=== PATIENT | male | born 1990 | race Caucasian/White ===

== ENCOUNTER 2017-01-15 15:18 | Emergency (ER) | payer BC ==
[2017-01-15] MEDS ORDERED: Ibuprofen 800 MG Tab PO ONE (15:31)
--- NOTE | 2017-01-15 15:42 | EDM.PDOC ---
ED HPI GENERAL MEDICAL PROBLEM - General Chief Complaint: General Stated Complaint: HIGH FEVER Time Seen by Provider: 01/15/17 15:30 Source of Information: Reports: Patient History Limitations: Reports: No limitations - History of Present Illness INITIAL COMMENTS - FREE TEXT/NARRATIVE: History of present illness: [6-year-old male presenting with complaints of fever, sore throat, headache, and congestion] Review of systems: As per history of present illness and below otherwise all systems reviewed and negative. Past medical history: As per history of present illness and as reviewed below otherwise noncontributory. Surgical history: As per history of present illness and as reviewed below otherwise noncontributory. Social history: No reported history of drug or alcohol abuse. Family history: As per history of present illness and as reviewed below otherwise noncontributory. Physical exam: HEENT: Atraumatic, normocephalic, pupils reactive, negative for conjunctival pallor or scleral icterus, mucous membranes moist, throat clear, neck supple, nontender, trachea midline. Lungs: Clear to auscultation, breath sounds equal bilaterally, chest nontender. Heart: S1S2, regular, negative for clicks, rubs, or JVD. Abdomen: Soft, nondistended, nontender. Negative for masses or hepatosplenomegaly. Negative for costovertebral tenderness. Pelvis: Stable nontender. Genitourinary: Deferred. Rectal: Deferred. Extremities: Atraumatic, negative for cords or calf pain. Neurovascular unremarkable. Neuro: Awake, alert, oriented. Cranial nerves II through XII unremarkable. Cerebellum unremarkable. Motor and sensory unremarkable throughout. Exam nonfocal. Diagnostics: [Plan for a and B.] Therapeutics: [800 mg of ibuprofen by mouth] Impression: [Viral syndrome] Plan: [Take ibuprofen [id number],take a few days off of work, rest hydrate] Definitive disposition and diagnosis as appropriate pending reevaluation and review of above. Generalized Pain Score (Numeric/FACES): 3 - Related Data Allergies Allergy/AdvReac Type Severity Reaction Status Date / Time No Known Allergies Allergy Verified 01/15/17 15:20 Home Meds: Home Meds . [No Known Home Meds] 01/15/17 [History] Past Medical History HEENT History: Reports: None Cardiovascular History: Reports: None Respiratory History: Reports: None Neurological History: Reports: None Psychiatric History: Reports: None - Infectious Disease History Infectious Disease History: Reports: Chicken pox - Past Surgical History HEENT Surgical History: Reports: None Cardiovascular Surgical History: Reports: None Neurological Surgical History: Reports: None Social & Family History - Tobacco Use Smoking Status *Q: Never Smoker ED ROS GENERAL - Review of Systems Review Of Systems: See Below (See history of present illness) ED EXAM, GENERAL - Physical Exam Exam: See Below (See history of present illness) Course - Vital Signs Last Recorded V/S: Last Vital Signs Temp 38.6 C H 01/15/17 15:37 Pulse 104 H 01/15/17 15:20 Resp 16 01/15/17 15:20 BP 138/63 01/15/17 15:20 Pulse Ox 99 01/15/17 15:20 - Orders/Labs/Meds Meds: Medications Discontinued Medications Generic Name Dose Route Start Last Admin Trade Name Freq PRN Reason Stop Dose Admin Ibuprofen 800 mg 01/15/17 15:31 01/15/17 15:37 Motrin PO 01/15/17 15:32 800 mg ONETIME ONE Administration Departure - Departure Time of Disposition: 16:07 Disposition: Home, Self-Care 01 Condition: good Clinical Impression: Viral syndrome Forms: ED Department Discharge Additional Instructions: The following information is given to patients seen in the emergency department who are being discharged to home. This information is to outline your options for follow-up care. We provide all patients seen in our emergency department with a follow-up referral. The need for follow-up, as well as the timing and circumstances, are variable depending upon the specifics of your emergency department visit. If you don't have a primary care physician on staff, we will provide you with a referral. We always advise you to contact your personal physician following an emergency department visit to inform them of the circumstance of the visit and for follow-up with them and/or the need for any referrals to a consulting specialist. The emergency department will also refer you to a specialist when appropriate. This referral assures that you have the opportunity for follow-up care with a specialist. All of these measure are taken in an effort to provide you with optimal care, which includes your follow-up. Under all circumstances we always encourage you to contact your private physician who remains a resource for coordinating your care. When calling for follow-up care, please make the office aware that this follow-up is from your recent emergency room visit. If for any reason you are refused follow-up, please contact the [facility] Emergency Department at and asked to speak to the emergency department charge nurse. You had negative influenza A and B. results Please take 800 mg of ibuprofen every 8 hours for the next 3-4 days Time off of work rest and hydrate Return to ED as needed as discussed
[2017-01-15 16:40] VITALS: BP 107/59
== END 2017-01-15 16:15 | disposition home or self-care (01) ==
LOC: MW.ED 15:18
DX: B34.9 Viral infection, unspecified (principal)
CPT/HCPCS: 87804; 99283; A9270; 36415; 88104

== ENCOUNTER 2017-01-16 16:14 | Observation (INO) | payer BC ==
[2017-01-16] MEDS ORDERED: Sodium Chloride 0.9% 1,000 ML IV ONE (16:18)
[2017-01-16] MEDS ORDERED: Ketorolac 30 MG/ML SDV IVPUSH ONE (16:21)
[2017-01-16] MEDS ORDERED: Ondansetron 4 MG/2 ML SDV IVPUSH ONE (16:29)
--- NOTE | 2017-01-16 16:52 | EDM.PDOC ---
ED HPI GENERAL MEDICAL PROBLEM - General Chief Complaint: Fever Stated Complaint: PT HAS FEVER Time Seen by Provider: 01/16/17 16:45 Source of Information: Reports: Patient History Limitations: Reports: No limitations - History of Present Illness INITIAL COMMENTS - FREE TEXT/NARRATIVE: History of present illness: [26-year-old male returning back to the ED with worsening symptoms. Patient was in [facility] for approximately 3-4 days returning 5 days ago. Patient now has diarrhea, significant amounts of nausea with excessive vomiting. Patient was tested for malaria yesterday per his request, with a negative result.] Review of systems: As per history of present illness and below otherwise all systems reviewed and negative. Past medical history: As per history of present illness and as reviewed below otherwise noncontributory. Surgical history: As per history of present illness and as reviewed below otherwise noncontributory. Social history: No reported history of drug or alcohol abuse. Family history: As per history of present illness and as reviewed below otherwise noncontributory. Physical exam: HEENT: Atraumatic, normocephalic, pupils reactive, negative for conjunctival pallor or scleral icterus, mucous membranes moist, throat clear, neck supple, nontender, trachea midline. Lungs: Clear to auscultation, breath sounds equal bilaterally, chest nontender. Heart: S1S2, regular, negative for clicks, rubs, or JVD. Abdomen: Soft, nondistended, nontender. Negative for masses or hepatosplenomegaly. Negative for costovertebral tenderness. Pelvis: Stable nontender. Genitourinary: Deferred. Rectal: Deferred. Extremities: Atraumatic, negative for cords or calf pain. Neurovascular unremarkable. Neuro: Awake, alert, oriented. Cranial nerves II through XII unremarkable. Cerebellum unremarkable. Motor and sensory unremarkable throughout. Exam nonfocal. Skin: Pale, mild diaphoresis Diagnostics: [CBC, CMP, influenza A&B, chest x-ray, blood cultures, lactic acid, magnesium, stool culture] Therapeutics: [IV fluid, Toradol, Zofran] Impression: [Influenza B, Nausea, vomiting, diarrhea with leukocytosis] Plan: [Admit for intractable vomiting] Definitive disposition and diagnosis as appropriate pending reevaluation and review of above. - Related Data Allergies Allergy/AdvReac Type Severity Reaction Status Date / Time No Known Allergies Allergy Verified 01/15/17 15:20 Home Meds: Home Meds . [No Known Home Meds] 01/15/17 [History] Past Medical History HEENT History: Reports: None Cardiovascular History: Reports: None Respiratory History: Reports: None Neurological History: Reports: None Psychiatric History: Reports: None - Infectious Disease History Infectious Disease History: Reports: Chicken pox - Past Surgical History HEENT Surgical History: Reports: None Cardiovascular Surgical History: Reports: None Neurological Surgical History: Reports: None Social & Family History - Tobacco Use Smoking Status *Q: Never Smoker ED ROS GENERAL - Review of Systems Review Of Systems: See Below (The history of present illness) ED EXAM, GENERAL - Physical Exam Exam: See Below (The history of present illness) Course - Orders/Labs/Meds Orders: Active Orders 24 hr Category Date Time Status CXR [Chest 2V] [CR] Stat Exams 01/16/17 16:53 Taken CULTURE BLOOD [BC] Stat Lab 01/16/17 17:22 Ordered CULTURE BLOOD [BC] Stat Lab 01/16/17 17:22 Ordered CULTURE STOOL + CAMPY+SHIGATOX [RM] Stat Lab 01/16/17 17:30 Uncollected CULTURE STREP A CONFIRMATION [RM] Stat Lab 01/16/17 16:57 Results INFLUENZA A+B AG SCREEN [RM] Stat Lab 01/16/17 16:57 Received LACTIC ACID,WHOLE BLOOD [BG] Stat Lab 01/16/17 17:22 Ordered MAGNESIUM [CHEM] Stat Lab 01/16/17 17:22 Ordered STREP SCRN A RAPID W CULT CONF [RM] Stat Lab 01/16/17 16:57 Results UA W/MICROSCOPIC [URIN] Stat Lab 01/16/17 16:18 Uncollected Blood Culture x2 Reflex Set [OM.PC] Stat Oth 01/16/17 17:22 Ordered Labs: Laboratory Tests 01/16/17 01/16/17 Range/Units 16:32 16:32 WBC 17.45 H (4.0-11.0) K/uL RBC 5.49 (4.50-5.90) M/uL Hgb 16.2 (13.0-17.0) g/dL Hct 47.1 (38.0-50.0) % MCV 85.8 (80.0-98.0) fL MCH 29.5 (27.0-32.0) pg MCHC 34.4 (31.0-37.0) g/dL RDW Std Deviation 40.0 (28.0-62.0) fl RDW Coeff of Bar 13 (11.0-15.0) % Plt Count 158 (150-400) K/uL MPV 10.30 (7.40-12.00) fL Neut % (Auto) 81.4 H (48.0-80.0) % Lymph % (Auto) 9.7 L (16.0-40.0) % [place] % (Auto) 8.8 (0.0-15.0) % Eos % (Auto) 0.0 (0.0-7.0) % Baso % (Auto) 0.1 (0.0-1.5) % Neut # 14.2 H (1.4-5.7) K/uL Lymph # 1.7 (0.6-2.4) K/uL [place] # 1.5 H (0.0-0.8) K/uL Eos # 0.0 (0.0-0.7) K/uL Baso # 0.0 (0.0-0.1) K/uL Nucleated RBC % 0.0 /100WBC Nucleated RBCs # 0 K/uL Sodium 138 (136-146) mmol/L Potassium 4.2 (3.5-5.1) mmol/L Chloride 102 (98-110) mmol/L Carbon Dioxide 25 (21-31) mmol/L BUN 8 (6.0-23.0) mg/dL Creatinine 1.2 (0.6-1.5) mg/dL Est Cr Clr Drug Dosing TNP Estimated GFR (MDRD) > 60.0 ml/min Glucose 138 H (60-110) mg/dL Calcium 9.8 (8.8-10.8) mg/dL Total Bilirubin 0.6 (0.1-1.5) mg/dL AST 20 (5-40) IU/L ALT 24 (8-54) IU/L Alkaline Phosphatase 51 (40-150) Total Protein 8.5 H (6.0-8.0) g/dL Albumin 4.7 (3.5-5.0) g/dL Globulin 3.8 H (2.0-3.5) g/dL Albumin/Globulin Ratio 1.2 L (1.3-2.8) Meds: Medications Discontinued Medications Generic Name Dose Route Start Last Admin Trade Name Freq PRN Reason Stop Dose Admin Sodium Chloride 1,000 mls @ 999 mls/hr 01/16/17 16:18 01/16/17 16:46 Normal Saline IV 01/16/17 17:18 999 mls/hr STAT ONE Administration Ketorolac Tromethamine 30 mg 01/16/17 16:21 01/16/17 16:51 Toradol IVPUSH 01/16/17 16:22 30 mg ONETIME ONE Administration Ondansetron HCl 8 mg 01/16/17 16:29 01/16/17 16:53 Zofran IVPUSH 01/16/17 16:30 8 mg ONETIME ONE Administration Departure - Departure Time of Disposition: 17:49 Disposition: Admitted As Inpatient 67 Condition: good Clinical Impression: Intractable nausea and vomiting Qualifiers: Vomiting type: unspecified Qualified Code(s): R11.2 - Nausea with vomiting, unspecified - My Orders Last 24 Hours: My Active Orders 01/16/17 16:18 UA W/MICROSCOPIC [URIN] Stat 01/16/17 16:53 CXR [Chest 2V] [CR] Stat 01/16/17 16:57 CULTURE STREP A CONFIRMATION [RM] Stat INFLUENZA A+B AG SCREEN [RM] Stat STREP SCRN A RAPID W CULT CONF [RM] Stat 01/16/17 17:22 CULTURE BLOOD [BC] Stat CULTURE BLOOD [BC] Stat LACTIC ACID,WHOLE BLOOD [BG] Stat MAGNESIUM [CHEM] Stat Blood Culture x2 Reflex Set [OM.PC] Stat 01/16/17 17:30 CULTURE STOOL + CAMPY+SHIGATOX [RM] Stat - Assessment/Plan Last 24 Hours: My Active Orders 01/16/17 16:18 UA W/MICROSCOPIC [URIN] Stat 01/16/17 16:53 CXR [Chest 2V] [CR] Stat 01/16/17 16:57 CULTURE STREP A CONFIRMATION [RM] Stat INFLUENZA A+B AG SCREEN [RM] Stat STREP SCRN A RAPID W CULT CONF [RM] Stat 01/16/17 17:22 CULTURE BLOOD [BC] Stat CULTURE BLOOD [BC] Stat LACTIC ACID,WHOLE BLOOD [BG] Stat MAGNESIUM [CHEM] Stat Blood Culture x2 Reflex Set [OM.PC] Stat 01/16/17 17:30 CULTURE STOOL + CAMPY+SHIGATOX [] Stat
[2017-01-16 17:07] LABS: CHLORIDE,CL 102 mmol/L (98-110); SODIUM,NA 138 mmol/L (136-146)
[2017-01-16] MEDS ORDERED: Sodium Chloride 0.9% 1,000 ML IV STA (18:04)
[2017-01-16] MEDS ORDERED: Promethazine 25 MG Tab PO PRN (18:11)
[2017-01-16] MEDS ORDERED: Levofloxacin/Dextrose 5%-Water 750 MG in Premix Bag 1 BAG IV ONE (18:11)
[2017-01-16] MEDS ORDERED: Ondansetron 4 MG/2 ML SDV IVPUSH PRN (18:11)
[2017-01-16] MEDS ORDERED: Piperacillin/Tazobactam 4.5 GM in Sodium Chloride 0.9% 100 ML IV SCH (18:15)
--- NOTE | 2017-01-16 18:37 | PCM.HP ---
H&P History of Present Illness - General Date of Service: 01/16/17 Admit Problem/Dx: Admission Diagnosis/Problem Admission Diagnosis/Problem Vomiting Source of Information: Patient, Family History Limitations: Reports: No limitations - History of Present Illness Initial Comments - Free Text/Narative: 26 yo male admitted on 01/16/17 for intractable vomiting and dehydration found to be influenza B positive and a leukocytosis of 17. Patient states that last week he was on vacation in [facility] with his . His became ill last but improved over the weekend. He started having nausea last Sunday and since has had increasing uncontrollable nausea and vomiting without hemetesis. He has also had multiple episodes of diarrhea as well as generalized body aches. He reports subjective fever, chills, and sore throat. He has been unable to keep anything down and presented to the ED secondary to this. In ED he was afebrile with normal vital signs. He did have a leukocytosis of 17 as well as positive influenza B. CXR was unremarkable. Lactate was normal at 1.0. Blood cultures as well as stool cultures were taken. Patient will be admitted for observation for intractable vomiting and dehydration influenza B positive. Throat Pain Score (Numeric/FACES): 3 - Related Data Allergies/Adverse Reactions: Allergies Allergy/AdvReac Type Severity Reaction Status Date / Time No Known Allergies Allergy Verified 01/15/17 15:20 Home Medications: Home Meds Multivitamin [Multi-Day Vitamins] PO DAILY 01/16/17 [History] Past Medical History HEENT History: Reports: None Cardiovascular History: Reports: None Respiratory History: Reports: None Neurological History: Reports: None Psychiatric History: Reports: None - Infectious Disease History Infectious Disease History: Reports: Chicken pox - Past Surgical History HEENT Surgical History: Reports: None Cardiovascular Surgical History: Reports: None Neurological Surgical History: Reports: None Social & Family History - Family History Family Medical History: Noncontributory - Tobacco Use Smoking Status *Q: Never Smoker - Caffeine Use Caffeine Use: Reports: None - Recreational Drug Use Recreational Drug Use: No H&P Review of Systems - Review of Systems: Review Of Systems: See Below General: Reports: fever, chills, weakness, fatigue, night sweats, diaphoresis, decreased appetite HEENT: Reports: sinus congestion, sore throat Pulmonary: Reports: Cough, Sputum Cardiovascular: Denies: chest pain, palpitations, lightheadedness, syncope Gastrointestinal: Reports: Diarrhea, Nausea. Denies: Abdominal pain, Black stool, Bloody stool Genitourinary: Denies: dysuria, hematuria Musculoskeletal: Denies: neck pain, leg pain Skin: Denies: cyanosis Psychiatric: Denies: confusion, depression Neurological: Denies: Confusion, Dizziness, Headache Hematologic/Lymphatic: Denies: anemia Exam - Exam Exam: See Below - Vital Signs Vital Signs: Last Vital Signs Temp 37.6 C 01/16/17 17:38 Pulse 62 01/16/17 17:38 Resp 16 01/16/17 17:38 BP 118/98 H 01/16/17 17:38 Pulse Ox 16 L 01/16/17 17:38 Weight: 92.986 kg - Exam Quality Assessment: DVT prophylaxis General: alert, oriented, cooperative HEENT: Conjunctiva clear, EACs clear, EOMI, Hearing intact, Mucosa moist & pink , Nares patent, Normal nasal septum, PERRLA Neck: supple, trachea midline, 2 Lungs: Clear to auscultation, Normal respiratory effort Cardiovascular: regular rate, regular rhythm, normal S1, normal S2 Abdomen: normal bowel sounds, soft. No: guarding, rigidity, rebound, tenderness Back Exam: normal inspection Extremities: normal inspection, normal pulses. No: calf tenderness, edema Peripheral Pulses: 2+: radial (L), radial (R), posterior tibial (L), posterior tibial (R), dorsalis pedis (L), dorsalis pedis (R) Skin: warm, intact, moist Neurological: cranial nerves intact Neuro Extensive - Mental Status: alert, oriented x3, normal mood/affect Neuro Extensive - Motor, Sensory, Reflexes: CN II-XII intact Psychiatric: alert, normal affect, normal mood - Patient Data Result Diagrams: 01/16/17 16:32 01/16/17 16:32 *Q Meaningful Use (ADM) - VTE *Q VTE Criteria *Q: - Stroke *Q Stroke Criteria *Q: - AMI *Q AMI Criteria *Q: - Problem List (1) Dehydration, mild SNOMED Code(s): 3186134956885 ICD Code: E86.0 - DEHYDRATION Status: Acute Priority: Medium Current Visit: Yes (2) Influenza B SNOMED Code(s): 08750353 ICD Code: J10.1 - FLU DUE TO OTH IDENT INFLUENZA VIRUS W OTH RESP MANIFEST Status: Acute Priority: High Current Visit: Yes (3) Intractable nausea and vomiting SNOMED Code(s): 441499450, 066442110 ICD Code: R11.2 - NAUSEA WITH VOMITING, UNSPECIFIED Status: Acute Priority: High Current Visit: Yes Qualifiers: Vomiting type: unspecified Qualified Code(s): R11.2 - Nausea with vomiting , unspecified Problem List Initiated/Reviewed/Updated: Yes Orders Last 24hrs: Active Orders 24 hr Category Date Time Status Patient Status [ADT] Routine ADT 01/16/17 18:11 Active Antiembolic Devices [RC] PER UNIT ROUTINE Care 01/16/17 18:13 Active Oxygen Therapy [RC] PRN Care 01/16/17 18:11 Active Up With Assistance [RC] ASDIRECTED Care 01/16/17 18:11 Active VTE/DVT Education [RC] PER UNIT ROUTINE Care 01/16/17 18:11 Active Vital Signs [RC] Q4H Care 01/16/17 18:11 Active Clear Liquid Diet [DIET] Diet 01/16/17 Dinner Active CBC WITH AUTO DIFF [HEME] DAILY Lab 01/17/17 05:00 Ordered CBC WITH AUTO DIFF [HEME] DAILY Lab 01/18/17 05:00 Ordered CBC WITH AUTO DIFF [HEME] DAILY Lab 01/19/17 05:00 Ordered CBC WITH AUTO DIFF [HEME] DAILY Lab 01/20/17 05:00 Ordered COMPREHENSIVE METABOLIC PN,CMP [CHEM] DAILY Lab 01/17/17 18:15 Ordered COMPREHENSIVE METABOLIC PN,CMP [CHEM] DAILY Lab 01/18/17 18:15 Ordered COMPREHENSIVE METABOLIC PN,CMP [CHEM] DAILY Lab 01/19/17 18:15 Ordered ZIKA VIRUS [REF] Stat Lab 01/16/17 17:55 Ordered Acetaminophen [Tylenol] Med 01/16/17 18:11 Active 650 mg PO Q4H PRN Enoxaparin [Lovenox] Med 01/16/17 18:15 Active 40 mg SUBCUT DAILY Levofloxacin/Dextrose 5%-Water [Levaquin in D5W 750 MG/ Med 01/16/17 18:11 Active 150 ML] 750 mg Premix Bag 1 bag IV ONETIME Ondansetron [Zofran] Med 01/16/17 18:11 Active 4 mg IVPUSH Q4H PRN Oseltamivir [Tamiflu] Med 01/16/17 18:15 Active 75 mg PO BID Piperacillin/Tazobactam [Piperacil-Tazobact] 4.5 gm Med 01/16/17 18:15 Active Sodium Chloride 0.9% [Normal Saline] 100 ml IV Q6H Promethazine [Phenergan] Med 01/16/17 18:11 Active 25 mg PO Q6H PRN Sodium Chloride 0.9% [Normal Saline] 1,000 ml Med 01/16/17 18:15 Active IV ASDIRECTED Sodium Chloride 0.9% [Normal Saline] 1,000 ml Med 01/16/17 18:04 Active IV NOW Vancomycin Pharmacy to Dose [Pharmacy to Dose - Med 01/16/17 18:15 Ordered Vancomycin] 1 dose .XX ASDIRECTED Sequential Compression Device [OM.PC] Per Unit Routine Oth 01/16/17 18:12 Ordered Resuscitation Status Routine Resus Stat 01/16/17 18:11 Ordered Medication Orders Acetaminophen (Tylenol) 650 mg PO Q4H PRN PRN Reason: Pain (Mild 1-3)/fever Enoxaparin Sodium (Lovenox) 40 mg SUBCUT DAILY [facility] Sodium Chloride (Normal Saline) 1,000 mls @ 999 mls/hr IV NOW STA Stop: 01/16/17 19:04 Last Admin: 01/16/17 18:05 Dose: 999 mls/hr Levofloxacin/Dextrose 750 mg/ (Premix) 150 mls @ 100 mls/hr IV ONETIME ONE Stop: 01/16/17 19:40 Sodium Chloride (Normal Saline) 1,000 mls @ 175 mls/hr IV ASDIRECTED [facility] Piperacillin Sod/Tazobactam (Sod 4.5 gm/ Sodium Chloride) 100 mls @ 100 mls/hr IV Q6H [facility] Ondansetron HCl (Zofran) 4 mg IVPUSH Q4H PRN PRN Reason: Nausea Oseltamivir Phosphate (Tamiflu) 75 mg PO BID [facility] Promethazine HCl (Phenergan) 25 mg PO Q6H PRN PRN Reason: nausea, able to take PO Vancomycin HCl (Pharmacy To Dose - Vancomycin) 1 dose .XX ASDIRECTED [facility] Assessment/Plan Comment:: 26 yo male with intractable vomiting, dehydration, influenza B and Leukocytosis. Intractable vomiting: Controlled in ED with 8 mg of Zofran IV. Will continue Zofran 4 mg IV q 4 hrs as well as phenergan 25 po. Will cont. to monitor but with fluid hydration should improve. Will get abdominal x-ray. Dehydration: Mildly dehydrated. No tachycardia, vital signs stable no fever. Will IVF resus with NS 150ml/hr Influenza B: Positive influenza B will treat with Tamiflu 75 mg po BID Leukocytosis: CXR negative but complaining of chest congestion. Secondary to WBC 17 will prophylatically treat with Levaquin for possible pneumonia. If improved tomorrow may d/c. VTE: Lovenox 40 mg po q day Dispo: 1-2 days.
[2017-01-16] MEDS: Enoxaparin 40 MG/0.4 ML Syringe SUBCUT SCH (18:47)
[2017-01-16] MEDS: Sodium Chloride 0.9% 1,000 ML IV SCH (18:48)
[2017-01-16] MEDS: Oseltamivir 75 MG Cap PO SCH ×2 (18:48→20:45)
[2017-01-16] MEDS: Acetaminophen 325 MG Tab PO PRN (18:48)
[2017-01-16] MEDS ORDERED: Flu Vaccine 2016-17(36Mos+)/PF 60 MCG/0.5 ML Syringe IM ONE (19:03)
[2017-01-16] MEDS ORDERED: Levofloxacin/Dextrose 5%-Water 750 MG in Premix Bag 1 BAG IV SCH (20:15)
[2017-01-16] MEDS: Benzocaine/Cetylpyridinium/Menthol Lozenge MUCMEM PRN (20:47)
[2017-01-16] MEDS ORDERED: Benzonatate 100 MG Cap PO PRN (21:08)
[2017-01-16] MEDS: Phenol 1.4% Oral Spray 177 ML Bottle MUCMEM PRN (23:18)
[2017-01-17] MEDS: Acetaminophen 325 MG Tab PO PRN (01:13)
[2017-01-17] MEDS: Benzocaine/Cetylpyridinium/Menthol Lozenge MUCMEM PRN ×2 (01:14→09:07)
[2017-01-17] MEDS: Sodium Chloride 0.9% 1,000 ML IV SCH ×2 (01:54→07:50)
[2017-01-17] MEDS ORDERED: Benzonatate 100 MG Cap PO PRN (03:00)
[2017-01-17] MEDS: Phenol 1.4% Oral Spray 177 ML Bottle MUCMEM PRN ×2 (03:47→08:57)
[2017-01-17 05:35] LABS: CHLORIDE,CL 108 mmol/L (98-110); SODIUM,NA 139 mmol/L (136-146)
[2017-01-17 08:28] VITALS: BP 127/72
[2017-01-17] MEDS: Enoxaparin 40 MG/0.4 ML Syringe SUBCUT SCH (08:54)
[2017-01-17] MEDS: Oseltamivir 75 MG Cap PO SCH (08:54)
[2017-01-17] MEDS ORDERED: Loperamide 2 MG Cap PO ONE (09:22)
--- NOTE | 2017-01-17 09:24 | PCM.DCSUM1 ---
[id number] Course Brief History: Patient stated that the week before admission he was on vacation in [facility] with his . His became ill last but improved over the weekend. He started having nausea last Sunday and since had increasing uncontrollable nausea and vomiting without hemetesis. He has also had multiple episodes of diarrhea as well as generalized body aches. He reports subjective fever, chills, and sore throat. He had been unable to keep anything down and presented to the ED secondary to this. - Discharge Data Discharge Date: 01/17/17 Discharge Disposition: Home, Self-Care 01 Condition: Good - Discharge Diagnosis/Problem(s) (1) Dehydration, mild SNOMED Code(s): 7711004132889 ICD Code: E86.0 - DEHYDRATION Status: Resolved Priority: Medium Current Visit: Yes (2) Influenza B SNOMED Code(s): 35766703 ICD Code: J10.1 - FLU DUE TO OTH IDENT INFLUENZA VIRUS W OTH RESP MANIFEST Status: Acute Priority: High Current Visit: Yes (3) Intractable nausea and vomiting SNOMED Code(s): 925615559, 061187243 ICD Code: R11.2 - NAUSEA WITH VOMITING, UNSPECIFIED Status: Resolved Priority: High Current Visit: Yes Qualifiers: Vomiting type: unspecified Qualified Code(s): R11.2 - Nausea with vomiting , unspecified - Patient Summary/Data Hospital Course: In ED he was afebrile with normal vital signs. He did have a leukocytosis of 17 as well as positive influenza B. CXR was unremarkable. Lactate was normal at 1.0. Blood cultures as well as stool cultures were taken. Patient will be admitted for observation for intractable vomiting and dehydration influenza B positive. In the hospital the patient's nausea was controlled with IV Zofran as well as po phenergan at night. He received Tessalon Pearls for his cough and was started on Tamiflu. On day 2 of his admission, patient's nausea had resolved. Patient still had congestion but overall was feeling much improved. - Patient Instructions Diet: GI Soft/Low Residue/Low Fiber Activity: As Tolerated Driving: Do Not Drive Showering/Bathing: May Shower Notify Provider of: Fever, Increased Pain, Nausea and/or Vomiting Other/Special Instructions: Follow-up with Dr. Lewis in one week. Take medications as prescribed. Return to ED if symtoms worsen. - Discharge Plan Prescriptions/Med Rec: Benzonatate [Tessalon Perles] 100 mg PO Q6H PRN #20 cap PRN Reason: Cough Ondansetron [Zofran ODT] 4 mg PO Q4H #16 tab.dis Oseltamivir Phosphate [IJD: Tamiflu] 75 mg PO BID #18 capsule Promethazine [Phenergan] 25 mg PO Q6H PRN #16 tablet PRN Reason: Nausea Home Medications: Home Meds Multivitamin [Multi-Day Vitamins] PO DAILY 01/16/17 [History] Benzonatate [Tessalon Perles] 100 mg PO Q6H PRN #20 cap 01/17/17 [Rx] Ondansetron [Zofran ODT] 4 mg PO Q4H #16 tab.dis 01/17/17 [Rx] Oseltamivir Phosphate [IJD: Tamiflu] 75 mg PO BID #18 capsule 01/17/17 [Rx] Promethazine [Phenergan] 25 mg PO Q6H PRN #16 tablet 01/17/17 [Rx] Patient Handouts: Influenza, Adult, [id number], Ondansetron oral dissolving tablet, Nausea and Vomiting, Adult, [id number], Oseltamivir capsules, Promethazine tablets, Benzonatate capsules, Dehydration, Adult - Discharge Summary/Plan Comment DC Time >30 min.: No Discharge Summary/Plan Comment: 26 yo male admitted on 01/16/17 for intractable vomiting and dehydration found to be influenza B positive and a leukocytosis of 17. Patient stated that the week before admission he was on vacation in [facility] with his . His became ill last but improved over the weekend. He started having nausea last Sunday and since had increasing uncontrollable nausea and vomiting without hemetesis. He has also had multiple episodes of diarrhea as well as generalized body aches. He reports subjective fever, chills , and sore throat. He had been unable to keep anything down and presented to the ED secondary to this. In ED he was afebrile with normal vital signs. He did have a leukocytosis of 17 as well as positive influenza B. CXR was unremarkable. Lactate was normal at 1.0. Blood cultures as well as stool cultures were taken. Patient will be admitted for observation for intractable vomiting and dehydration influenza B positive. In the hospital the patient's nausea was controlled with IV Zofran as well as po phenergan at night. He received Tessalon Pearls for his cough and was started on Tamiflu. On day 2 of his admission, patient's nausea had resolved. Patient still had congestion but overall was feeling much improved. He was discharged on second day of admission after requesting discharge scondary to improved status. He was given a prescription for Tamiflu, Tessalon Pearls, Zofran, Phenergan, and a work note excusing him from work through the weekend (01/21). His who was also exposed was given a prescription for Tamiflu as well. He was instructed to return to the ED if he had any worsening of symptoms. - General Info Date of Service: 01/17/17 Admission Dx/Problem (Free Text: Admission Diagnosis/Problem Admission Diagnosis/Problem Vomiting Functional Status: Reports: pain controlled, tolerating diet - Review of Systems General: Reports: Fever, Weakness, Fatigue HEENT: Reports: sore throat. Denies: headaches Pulmonary: Denies: shortness of breath Cardiovascular: Denies: Chest Pain, Palpitations, Edema Gastrointestinal: Reports: Diarrhea. Denies: Abdominal pain, Constipation, Nausea, Vomiting Genitourinary: Denies: dysuria, hematuria Musculoskeletal: Denies: neck pain, leg pain Skin: Denies: cyanosis Neurological: Denies: Confusion, Dizziness Psychiatric: Denies: confusion - Patient Data Vitals - Most Recent: Last Vital Signs Temp 101.1 C H 01/17/17 08:00 Pulse 98 01/17/17 08:00 Resp 20 01/17/17 08:00 BP 127/72 01/17/17 08:00 Pulse Ox 98 01/17/17 08:00 Weight - Most Recent: 92.986 kg I&O - Last 24 hours: Intake & Output 01/16/17 01/17/17 01/17/17 22:59 06:59 14:59 Intake Total 150 2569 681 Output Total 1850 Balance 150 719 681 Lab Results - Last 24 hrs: Laboratory Results - last 24 hr 01/16/17 01/17/17 01/17/17 Range/Units 20:00 05:03 05:03 WBC 13.36 H (4.0-11.0) K/uL RBC 4.70 (4.50-5.90) M/uL Hgb 13.6 (13.0-17.0) g/dL Hct 40.5 (38.0-50.0) % MCV 86.2 (80.0-98.0) fL MCH 28.9 (27.0-32.0) pg MCHC 33.6 (31.0-37.0) g/dL RDW Std Deviation 40.9 (28.0-62.0) fl RDW Coeff of Bar 13 (11.0-15.0) % Plt Count 145 L (150-400) K/uL MPV 10.50 (7.40-12.00) fL Neut % (Auto) 75.8 (48.0-80.0) % Lymph % (Auto) 9.9 L (16.0-40.0) % [place] % (Auto) 14.2 (0.0-15.0) % Eos % (Auto) 0.0 (0.0-7.0) % Baso % (Auto) 0.1 (0.0-1.5) % Neut # 10.1 H (1.4-5.7) K/uL Lymph # 1.3 (0.6-2.4) K/uL [place] # 1.9 H (0.0-0.8) K/uL Eos # 0.0 (0.0-0.7) K/uL Baso # 0.0 (0.0-0.1) K/uL Nucleated RBC % 0.0 /100WBC Nucleated RBCs # 0 K/uL Sodium 139 (136-146) mmol/L Potassium 4.1 (3.5-5.1) mmol/L Chloride 108 (98-110) mmol/L Carbon Dioxide 23 (21-31) mmol/L BUN 6 (6.0-23.0) mg/dL Creatinine 1.0 (0.6-1.5) mg/dL Est Cr Clr Drug Dosing 112.92 mL/min Estimated GFR (MDRD) > 60.0 ml/min Glucose 130 H (60-110) mg/dL Calcium 8.2 L (8.8-10.8) mg/dL Total Bilirubin 0.5 (0.1-1.5) mg/dL AST 19 (5-40) IU/L ALT 18 (8-54) IU/L Alkaline Phosphatase 40 (40-150) Total Protein 6.7 (6.0-8.0) g/dL Albumin 3.9 (3.5-5.0) g/dL Globulin 2.8 (2.0-3.5) g/dL Albumin/Globulin Ratio 1.4 (1.3-2.8) Urine Color YELLOW Urine Appearance CLEAR Urine pH 7.0 (5.0-8.0) Ur Specific [place] 1.010 (1.001-1.035) Urine Protein TRACE (NEGATIVE) mg/dL Urine Glucose (UA) NEGATIVE (NEGATIVE) mg/dL Urine Ketones NEGATIVE (NEGATIVE) mg/dL Urine Occult Blood TRACE-INTACT (NEGATIVE) Urine Nitrite NEGATIVE (NEGATIVE) Urine Bilirubin NEGATIVE (NEGATIVE) Urine Urobilinogen 0.2 (<2.0) EU/dL Ur Leukocyte Esterase NEGATIVE (NEGATIVE) Urine RBC 0-2 (0-2/HPF) Urine WBC 1-3 (0-5/HPF) Ur Epithelial Cells OCCASIONAL (NONE-FEW) Urine Bacteria FEW (NEGATIVE) Hyaline Casts 1-3 (0-2/LPF) ELIAZAR Results - Last 24 hrs: Microbiology 01/16/17 20:02 Clostridium difficile Toxin A&B (M) - Final Stool / Feces - Stool, Liquid Negative for C.Diff Toxin/AG 01/16/17 20:00 Campylobacter Antigen Assay - Final Stool / Feces - Stool, Liquid NEGATIVE CAMPYLOBACTER AG 01/16/17 20:00 Group A Streptococcus Rapid Screen - Final Throat NEGATIVE STREP A SCREEN Med Orders - Current: Current Medications Acetaminophen (Tylenol) 650 mg PO Q4H PRN PRN Reason: Pain (Mild 1-3)/fever Last Admin: 01/17/17 01:13 Dose: 650 mg Benzocaine/Menthol (Cepacol Sore Throat) 1 lozenge MUCMEM Q2HR PRN PRN Reason: Sore Throat Last Admin: 01/17/17 09:07 Dose: 1 lozenge Benzonatate (Tessalon Perles) 100 mg PO Q6H PRN PRN Reason: Cough Last Admin: 01/17/17 06:11 Dose: 100 mg Enoxaparin Sodium (Lovenox) 40 mg SUBCUT DAILY [facility] Last Admin: 01/17/17 08:54 Dose: 40 mg Sodium Chloride (Normal Saline) 1,000 mls @ 175 mls/hr IV ASDIRECTED [facility] Last Admin: 01/17/17 07:50 Dose: 175 mls/hr Levofloxacin/Dextrose 750 mg/ (Premix) 150 mls @ 100 mls/hr IV Q24H [facility] Last Admin: 01/16/17 20:48 Dose: 100 mls/hr Ondansetron HCl (Zofran) 4 mg IVPUSH Q4H PRN PRN Reason: Nausea Oseltamivir Phosphate (Tamiflu) 75 mg PO BID [facility] Last Admin: 01/17/17 08:54 Dose: 75 mg Phenol/Menthol (Chloraseptic Throat [place]) 2 ml MUCMEM Q2H PRN PRN Reason: Sore Throat Last Admin: 01/17/17 08:57 Dose: 2 ml Promethazine HCl (Phenergan) 25 mg PO Q6H PRN PRN Reason: nausea, able to take PO Discontinued Medications Benzonatate (Tessalon Perles) 100 mg PO QID PRN PRN Reason: Cough Last Admin: 01/16/17 21:42 Dose: 100 mg Sodium Chloride (Normal Saline) 1,000 mls @ 999 mls/hr IV STAT ONE Stop: 01/16/17 17:18 Last Admin: 01/16/17 16:46 Dose: 999 mls/hr Sodium Chloride (Normal Saline) 1,000 mls @ 999 mls/hr IV NOW STA Stop: 01/16/17 19:04 Last Admin: 01/16/17 18:05 Dose: 999 mls/hr Levofloxacin/Dextrose 750 mg/ (Premix) 150 mls @ 100 mls/hr IV ONETIME ONE Stop: 01/16/17 19:40 Last Admin: 01/16/17 19:15 Dose: Not Given Piperacillin Sod/Tazobactam (Sod 4.5 gm/ Sodium Chloride) 100 mls @ 100 mls/hr IV Q6H [facility] Last Admin: 01/16/17 19:16 Dose: Not Given Influenza Virus Vaccine (Fluzone/Fluarix Vaccine) 60 mcg IM .ONCE ONE Stop: 01/16/17 19:04 Ketorolac Tromethamine (Toradol) 30 mg IVPUSH ONETIME ONE Stop: 01/16/17 16:22 Last Admin: 01/16/17 16:51 Dose: 30 mg Loperamide HCl (Imodium) 2 mg PO ONETIME ONE Stop: 01/17/17 09:23 Last Admin: 01/17/17 09:37 Dose: 2 mg Ondansetron HCl (Zofran) 8 mg IVPUSH ONETIME ONE Stop: 01/16/17 16:30 Last Admin: 01/16/17 16:53 Dose: 8 mg Vancomycin HCl (Pharmacy To Dose - Vancomycin) 1 dose .XX ASDIRECTED [facility] - Exam Quality Assessment: Reports: DVT prophylaxis General: Reports: alert, oriented, cooperative, no acute distress HEENT: Reports: Pupils equal, Pupils reactive, EOMI, Mucous membr. moist/pink Neck: Reports: supple, trachea midline Lungs: Reports: Clear to auscultation, Normal respiratory effort Cardiovascular: Reports: Regular Rate, Regular Rhythm, No Murmurs Abdomen: Reports: bowel sounds present, soft, no tenderness, no distension Back Exam: Reports: normal inspection Extremities: Reports: no edema, normal pulses, no tenderness/swelling, no calf tenderness Skin: Reports: warm, dry, intact Wound/Incisions: Reports: healing well Neurological: Reports: no new focal deficit Psy/Mental Status: Reports: alert, normal affect, normal mood Original Note: <Constantino Lewis - Last Filed: 01/17/17 10:35> Discharge Summary - Hospital Course HPI Initial Comments: 26 yo male admitted on 01/16/17 for intractable vomiting and dehydration found to be influenza B positive and a leukocytosis of 17. Brief History: Patient stated that the week before admission he was on vacation in [facility] with his . His became ill last but improved over the weekend. He started having nausea last Sunday and since had increasing uncontrollable nausea and vomiting without hemetesis. He has also had multiple episodes of diarrhea as well as generalized body aches. He reports subjective fever, chills, and sore throat. He had been unable to keep anything down and presented to the ED secondary to this. - Discharge Data Discharge Date: 01/17/17 Discharge Disposition: Home, Self-Care 01 Condition: Good - Discharge Diagnosis/Problem(s) (1) Dehydration, mild SNOMED Code(s): 3189392916686 ICD Code: E86.0 - DEHYDRATION Status: Resolved Priority: Medium (2) Influenza B SNOMED Code(s): 32408546 ICD Code: J10.1 - FLU DUE TO OTH IDENT INFLUENZA VIRUS W OTH RESP MANIFEST Status: Acute Priority: High (3) Intractable nausea and vomiting SNOMED Code(s): 106124217, 003878918 ICD Code: R11.2 - NAUSEA WITH VOMITING, UNSPECIFIED Status: Resolved Priority: High Qualifiers: Vomiting type: unspecified Qualified Code(s): R11.2 - Nausea with vomiting , unspecified - Patient Instructions Diet: GI Soft/Low Residue/Low Fiber Activity: As Tolerated Driving: Do Not Drive Showering/Bathing: May Shower Notify Provider of: Fever, Increased Pain, Nausea and/or Vomiting Other/Special Instructions: Follow-up with Dr. Lewis in one week. Take medications as prescribed. Return to ED if symtoms worsen. - Discharge Plan Prescriptions/Med Rec: Benzonatate [Tessalon Perles] 100 mg PO Q6H PRN #20 cap PRN Reason: Cough Ondansetron [Zofran ODT] 4 mg PO Q4H #16 tab.dis Oseltamivir Phosphate [IJD: Tamiflu] 75 mg PO BID #18 capsule Promethazine [Phenergan] 25 mg PO Q6H PRN #16 tablet PRN Reason: Nausea Home Medications: Home Meds Multivitamin [Multi-Day Vitamins] PO DAILY 01/16/17 [History] Benzonatate [Tessalon Perles] 100 mg PO Q6H PRN #20 cap 01/17/17 [Rx] Ondansetron [Zofran ODT] 4 mg PO Q4H #16 tab.dis 01/17/17 [Rx] Oseltamivir Phosphate [IJD: Tamiflu] 75 mg PO BID #18 capsule 01/17/17 [Rx] Promethazine [Phenergan] 25 mg PO Q6H PRN #16 tablet 01/17/17 [Rx] Patient Handouts: Influenza, Adult, [id number], Ondansetron oral dissolving tablet, Nausea and Vomiting, Adult, [id number], Oseltamivir capsules, Promethazine tablets, Benzonatate capsules, Dehydration, Adult - Discharge Summary/Plan Comment DC Time >30 min.: No Discharge Summary/Plan Comment: 26 yo male admitted on 01/16/17 for intractable vomiting and dehydration found to be influenza B positive and a leukocytosis of 17. Patient stated that the week before admission he was on vacation in [facility] with his . His became ill last but improved over the weekend. He started having nausea last Sunday and since had increasing uncontrollable nausea and vomiting without hemetesis. He has also had multiple episodes of diarrhea as well as generalized body aches. He reports subjective fever, chills , and sore throat. He had been unable to keep anything down and presented to the ED secondary to this. In ED he was afebrile with normal vital signs. He did have a leukocytosis of 17 as well as positive influenza B. CXR was unremarkable. Lactate was normal at 1.0. Blood cultures as well as stool cultures were taken. Patient will be admitted for observation for intractable vomiting and dehydration influenza B positive. In the hospital the patient's nausea was controlled with IV Zofran as well as po phenergan at night. He received Tessalon Pearls for his cough and was started on Tamiflu. On day 2 of his admission, patient's nausea had resolved. Patient still had congestion but overall was feeling much improved. He was discharged on second day of admission with a prescription for Tamiflu, Tessalon Pearls, Zofran, Phenergan, and a work note excusing him from work through the weekend (01/21). His who was also exposed was given a prescription for Tamiflu as well. He was instructed to return to the ED if he had any worsening of symptoms. - Patient Data Vitals - Most Recent: Last Vital Signs Temp 101.1 C H 01/17/17 08:00 Pulse 98 01/17/17 08:00 Resp 20 01/17/17 08:00 BP 127/72 01/17/17 08:00 Pulse Ox 98 01/17/17 08:00 Weight - Most Recent: 92.986 kg I&O - Last 24 hours: Intake & Output 01/16/17 01/17/17 01/17/17 22:59 06:59 14:59 Intake Total 150 2569 681 Output Total 1850 Balance 150 289 681 Lab Results - Last 24 hrs: Laboratory Results - last 24 hr 01/16/17 01/17/17 01/17/17 Range/Units 20:00 05:03 05:03 WBC 13.36 H (4.0-11.0) K/uL RBC 4.70 (4.50-5.90) M/uL Hgb 13.6 (13.0-17.0) g/dL Hct 40.5 (38.0-50.0) % MCV 86.2 (80.0-98.0) fL MCH 28.9 (27.0-32.0) pg MCHC 33.6 (31.0-37.0) g/dL RDW Std Deviation 40.9 (28.0-62.0) fl RDW Coeff of Bar 13 (11.0-15.0) % Plt Count 145 L (150-400) K/uL MPV 10.50 (7.40-12.00) fL Neut % (Auto) 75.8 (48.0-80.0) % Lymph % (Auto) 9.9 L (16.0-40.0) % [place] % (Auto) 14.2 (0.0-15.0) % Eos % (Auto) 0.0 (0.0-7.0) % Baso % (Auto) 0.1 (0.0-1.5) % Neut # 10.1 H (1.4-5.7) K/uL Lymph # 1.3 (0.6-2.4) K/uL [place] # 1.9 H (0.0-0.8) K/uL Eos # 0.0 (0.0-0.7) K/uL Baso # 0.0 (0.0-0.1) K/uL Nucleated RBC % 0.0 /100WBC Nucleated RBCs # 0 K/uL Sodium 139 (136-146) mmol/L Potassium 4.1 (3.5-5.1) mmol/L Chloride 108 (98-110) mmol/L Carbon Dioxide 23 (21-31) mmol/L BUN 6 (6.0-23.0) mg/dL Creatinine 1.0 (0.6-1.5) mg/dL Est Cr Clr Drug Dosing 112.92 mL/min Estimated GFR (MDRD) > 60.0 ml/min Glucose 130 H (60-110) mg/dL Calcium 8.2 L (8.8-10.8) mg/dL Total Bilirubin 0.5 (0.1-1.5) mg/dL AST 19 (5-40) IU/L ALT 18 (8-54) IU/L Alkaline Phosphatase 40 (40-150) Total Protein 6.7 (6.0-8.0) g/dL Albumin 3.9 (3.5-5.0) g/dL Globulin 2.8 (2.0-3.5) g/dL Albumin/Globulin Ratio 1.4 (1.3-2.8) Urine Color YELLOW Urine Appearance CLEAR Urine pH 7.0 (5.0-8.0) Ur Specific [place] 1.010 (1.001-1.035) Urine Protein TRACE (NEGATIVE) mg/dL Urine Glucose (UA) NEGATIVE (NEGATIVE) mg/dL Urine Ketones NEGATIVE (NEGATIVE) mg/dL Urine Occult Blood TRACE-INTACT (NEGATIVE) Urine Nitrite NEGATIVE (NEGATIVE) Urine Bilirubin NEGATIVE (NEGATIVE) Urine Urobilinogen 0.2 (<2.0) EU/dL Ur Leukocyte Esterase NEGATIVE (NEGATIVE) Urine RBC 0-2 (0-2/HPF) Urine WBC 1-3 (0-5/HPF) Ur Epithelial Cells OCCASIONAL (NONE-FEW) Urine Bacteria FEW (NEGATIVE) Hyaline Casts 1-3 (0-2/LPF) ELIAZAR Results - Last 24 hrs: Microbiology 01/16/17 20:02 Clostridium difficile Toxin A&B (M) - Final Stool / Feces - Stool, Liquid Negative for C.Diff Toxin/AG 01/16/17 20:00 Campylobacter Antigen Assay - Final Stool / Feces - Stool, Liquid NEGATIVE CAMPYLOBACTER AG 01/16/17 20:00 Group A Streptococcus Rapid Screen - Final Throat NEGATIVE STREP A SCREEN Med Orders - Current: Current Medications Acetaminophen (Tylenol) 650 mg PO Q4H PRN PRN Reason: Pain (Mild 1-3)/fever Last Admin: 01/17/17 01:13 Dose: 650 mg Benzocaine/Menthol (Cepacol Sore Throat) 1 lozenge MUCMEM Q2HR PRN PRN Reason: Sore Throat Last Admin: 01/17/17 09:07 Dose: 1 lozenge Benzonatate (Tessalon Perles) 100 mg PO Q6H PRN PRN Reason: Cough Last Admin: 01/17/17 06:11 Dose: 100 mg Enoxaparin Sodium (Lovenox) 40 mg SUBCUT DAILY [facility] Last Admin: 01/17/17 08:54 Dose: 40 mg Sodium Chloride (Normal Saline) 1,000 mls @ 175 mls/hr IV ASDIRECTED [facility] Last Admin: 01/17/17 07:50 Dose: 175 mls/hr Levofloxacin/Dextrose 750 mg/ (Premix) 150 mls @ 100 mls/hr IV Q24H [facility] Last Admin: 01/16/17 20:48 Dose: 100 mls/hr Loperamide HCl (Imodium) 2 mg PO ONETIME ONE Stop: 01/17/17 09:23 Ondansetron HCl (Zofran) 4 mg IVPUSH Q4H PRN PRN Reason: Nausea Oseltamivir Phosphate (Tamiflu) 75 mg PO BID [facility] Last Admin: 01/17/17 08:54 Dose: 75 mg Phenol/Menthol (Chloraseptic Throat [place]) 2 ml MUCMEM Q2H PRN PRN Reason: Sore Throat Last Admin: 01/17/17 08:57 Dose: 2 ml Promethazine HCl (Phenergan) 25 mg PO Q6H PRN PRN Reason: nausea, able to take PO Discontinued Medications Benzonatate (Tessalon Perles) 100 mg PO QID PRN PRN Reason: Cough Last Admin: 01/16/17 21:42 Dose: 100 mg Sodium Chloride (Normal Saline) 1,000 mls @ 999 mls/hr IV STAT ONE Stop: 01/16/17 17:18 Last Admin: 01/16/17 16:46 Dose: 999 mls/hr Sodium Chloride (Normal Saline) 1,000 mls @ 999 mls/hr IV NOW STA Stop: 01/16/17 19:04 Last Admin: 01/16/17 18:05 Dose: 999 mls/hr Levofloxacin/Dextrose 750 mg/ (Premix) 150 mls @ 100 mls/hr IV ONETIME ONE Stop: 01/16/17 19:40 Last Admin: 01/16/17 19:15 Dose: Not Given Piperacillin Sod/Tazobactam (Sod 4.5 gm/ Sodium Chloride) 100 mls @ 100 mls/hr IV Q6H [facility] Last Admin: 01/16/17 19:16 Dose: Not Given Influenza Virus Vaccine (Fluzone/Fluarix Vaccine) 60 mcg IM .ONCE ONE Stop: 01/16/17 19:04 Ketorolac Tromethamine (Toradol) 30 mg IVPUSH ONETIME ONE Stop: 01/16/17 16:22 Last Admin: 01/16/17 16:51 Dose: 30 mg Ondansetron HCl (Zofran) 8 mg IVPUSH ONETIME ONE Stop: 01/16/17 16:30 Last Admin: 01/16/17 16:53 Dose: 8 mg Vancomycin HCl (Pharmacy To Dose - Vancomycin) 1 dose .XX ASDIRECTED [facility] *Q Meaningful Use (DIS) - VTE *Q VTE Criteria *Q: - Stroke *Q Stroke Criteria *Q: - AMI *Q AMI Criteria *Q: <Fredis Hood - Last Filed: 01/18/17 14:46> - Patient Data Vitals - Most Recent: Last Vital Signs Temp 38.4 C H 01/17/17 08:00 Pulse 98 01/17/17 08:00 Resp 20 01/17/17 08:00 BP 127/72 01/17/17 08:00 Pulse Ox 98 01/17/17 08:00 ELIAZAR Results - Last 24 hrs: Microbiology 01/16/17 20:00 Quick Strep Confirmation Culture - Final Throat NO GROUP A STREP ISOLATED Group A Streptococcus Rapid Screen - Final NEGATIVE STREP A SCREEN 01/16/17 20:00 Stool Culture - Final Stool / Feces - Stool, Liquid Campylobacter Antigen Assay - Final NEGATIVE CAMPYLOBACTER AG - Final NEGATIVE FOR SHIGA TOXIN 1 - Final NEGATIVE FOR SHIGA TOXIN 2 01/16/17 18:00 Aerobic Blood Culture - Preliminary Blood - Venous - Lab Draw NO GROWTH AFTER 1 DAY Anaerobic Blood Culture - Preliminary NO GROWTH AFTER 1 DAY 01/17/17 09:30 Gram Stain - Preliminary Sputum - Expectorated Med Orders - Current: Current Medications Discontinued Medications Acetaminophen (Tylenol) 650 mg PO Q4H PRN PRN Reason: Pain (Mild 1-3)/fever Last Admin: 01/17/17 01:13 Dose: 650 mg Benzocaine/Menthol (Cepacol Sore Throat) 1 lozenge MUCMEM Q2HR PRN PRN Reason: Sore Throat Last Admin: 01/17/17 09:07 Dose: 1 lozenge Benzonatate (Tessalon Perles) 100 mg PO QID PRN PRN Reason: Cough Last Admin: 01/16/17 21:42 Dose: 100 mg Benzonatate (Tessalon Perles) 100 mg PO Q6H PRN PRN Reason: Cough Last Admin: 01/17/17 06:11 Dose: 100 mg Enoxaparin Sodium (Lovenox) 40 mg SUBCUT DAILY [facility] Last Admin: 01/17/17 08:54 Dose: 40 mg Sodium Chloride (Normal Saline) 1,000 mls @ 999 mls/hr IV STAT ONE Stop: 01/16/17 17:18 Last Admin: 01/16/17 16:46 Dose: 999 mls/hr Sodium Chloride (Normal Saline) 1,000 mls @ 999 mls/hr IV NOW STA Stop: 01/16/17 19:04 Last Admin: 01/16/17 18:05 Dose: 999 mls/hr Levofloxacin/Dextrose 750 mg/ (Premix) 150 mls @ 100 mls/hr IV ONETIME ONE Stop: 01/16/17 19:40 Last Admin: 01/16/17 19:15 Dose: Not Given Sodium Chloride (Normal Saline) 1,000 mls @ 175 mls/hr IV ASDIRECTED [facility] Last Admin: 01/17/17 07:50 Dose: 175 mls/hr Piperacillin Sod/Tazobactam (Sod 4.5 gm/ Sodium Chloride) 100 mls @ 100 mls/hr IV Q6H [facility] Last Admin: 01/16/17 19:16 Dose: Not Given Levofloxacin/Dextrose 750 mg/ (Premix) 150 mls @ 100 mls/hr IV Q24H [facility] Last Admin: 01/16/17 20:48 Dose: 100 mls/hr Influenza Virus Vaccine (Fluzone/Fluarix Vaccine) 60 mcg IM .ONCE ONE Stop: 01/16/17 19:04 Last Admin: 01/17/17 10:43 Dose: Not Given Ketorolac Tromethamine (Toradol) 30 mg IVPUSH ONETIME ONE Stop: 01/16/17 16:22 Last Admin: 01/16/17 16:51 Dose: 30 mg Loperamide HCl (Imodium) 2 mg PO ONETIME ONE Stop: 01/17/17 09:23 Last Admin: 01/17/17 09:37 Dose: 2 mg Ondansetron HCl (Zofran) 8 mg IVPUSH ONETIME ONE Stop: 01/16/17 16:30 Last Admin: 01/16/17 16:53 Dose: 8 mg Ondansetron HCl (Zofran) 4 mg IVPUSH Q4H PRN PRN Reason: Nausea Oseltamivir Phosphate (Tamiflu) 75 mg PO BID GALO Last Admin: 01/17/17 08:54 Dose: 75 mg Phenol/Menthol (Chloraseptic Throat [place]) 2 ml MUCMEM Q2H PRN PRN Reason: Sore Throat Last Admin: 01/17/17 08:57 Dose: 2 ml Promethazine HCl (Phenergan) 25 mg PO Q6H PRN PRN Reason: nausea, able to take PO Vancomycin HCl (Pharmacy To Dose - Vancomycin) 1 dose .XX ASDIRECTED GALO *Q Meaningful Use (DIS) - VTE *Q VTE Criteria *Q: - Stroke *Q Stroke Criteria *Q: - AMI *Q AMI Criteria *Q: - Free Text/Narrative Note: I have examined the patient. I have discussed findings and treatment plan with resident. I agree with the assessment and plan outlined in the resident's note.
--- NOTE | 2017-01-17 14:41 | CR ---
EXAM DATE: 01/16/17 PATIENT'S AGE: 26 Patient: LIZ PRESCOTT Facility: [place], [place] Site . Site : 1990 Study: XRay Chest [id number]/21/2017 5:19:42 PM Ordering Physician: Doctor Rodney Final Report: INDICATION: fever TECHNIQUE: Chest 2 views. COMPARISON: None. FINDINGS: Cardiovascular and mediastinum: Heart size and vasculature are normal in caliber and appearance. Mediastinum is within normal limits. Lungs and pleural spaces: Lungs are clear. No sign of infiltrate or mass. No sign of pleural effusion. No pneumothorax. Bones and soft tissues: No significant findings. IMPRESSION: Unremarkable chest. Dictated by: Daryn Dugan MD @ 01/16/2017 17:48:38 (Electronic Signature) Report Signed by Proxy and Original Signed Document filed in the Medical Record. PASHA
--- NOTE | 2017-01-17 15:03 | CR ---
EXAM DATE: 01/16/17 PATIENT'S AGE: 26 Patient: LIZ PRESCOTT Facility: [place], [place] Site . Site : 1990 Study: XRay Abdomen [id number]/22/2017 1:55:06 AM Ordering Physician: Erwin Mcneal Final Report: INDICATION: nausea and vomiting TECHNIQUE: Abdomen 2 view COMPARISON: None FINDINGS: Bowel: Nonobstructive gas pattern. Soft tissues: No sign of soft tissue mass. No suspicious calcifications. Bones: Unremarkable for age. IMPRESSION: Nonobstructive bowel gas pattern. Dictated by James Yeager MD @ 01/17/2017 2:00:19 AM Dictated by: James Yeager MD @ 01/17/2017 02:00:27 (Electronic Signature) Report Signed by Proxy and Original Signed Document filed in the Medical Record. PASHA
== END 2017-01-17 10:40 | disposition home or self-care (01) ==
LOC: MW.ED 16:14 → MW.MS 17:47
PROVIDERS: ADMIT Internal Medicine; ATTEND Internal Medicine
DX: J10.1 Influenza due to other identified influenza virus with other respiratory manifestations (principal); E86.0 Dehydration; R11.2 Nausea with vomiting, unspecified; Z79.899 Other long term (current) drug therapy; D72.829 Elevated white blood cell count, unspecified
CPT/HCPCS: 36415; 71020; 74000; 80053; 81001; 83605; 83735; 85025; 87040; 87046; 87070; 87077; 87081; 87186; 87205; 87324; 87804; 87880; 87899; 96361; 96365; 96366; 96372; 96375; 99285; A9270; G0378; J1650; J1885; J1956; J2405; J7040; 87800; 96374; 99284